=== PATIENT | female | born 1950 | race Caucasian/White ===

== ENCOUNTER 2023-03-30 17:00 | Emergency (ER) | payer MEDICARE, OTHER, SELFPAY ==
[2023-03-30 17:02] VITALS: BP 157/83; PULSE 93; RESP 18; TEMP 37.7; O2SAT 95; BMI 47.0
--- NOTE | 2023-03-30 18:06 | EKG12_ITS ---
Test Reason : Blood Pressure : / mmHG Vent. Rate : 095 BPM Atrial Rate : 095 BPM P-R Int : 180 ms QRS Dur : 144 ms QT Int : 380 ms P-R-T Axes : 022 -39 124 degrees QTc Int : 477 ms Normal sinus rhythm Left axis deviation Left bundle branch block Abnormal ECG Confirmed by HEATHER LEDESMA, HALEIGH ([id number]), social media editor RADHA LEUNG ([id number]) on 04/04/2023 10:38:24 AM Referred By: Confirmed By:KIKO ROMERO MD
[2023-03-30 18:08] VITALS: PULSE 97; RESP 20; O2SAT 90
--- NOTE | 2023-03-30 18:28 | EDS_ITS ---
HPI History of Present Illness Chief Complaint: Cold Sx Informant: patient Onset/Context/Timing Onset: Days (3) Context: Gradual Onset Timing: Continuous Quality: Sore Location: Generalized Worsened by: Nothing Relieved by: Nothing Narrative Narrative: Presents with I do not feel good. Patient states this has been getting worse over the past 3 days. Patient states it is gradually getting worse. Patient states she feels sore all over. Patient states nothing makes it worse and nothing makes it better. Patient states she became concerned today when she took her temperature and it was 101. Patient admits to a mild sore throat. Patient admits to a cough and some shortness of breath. Patient admits to some urinary frequency but denies any dysuria or hematuria. Patient admits to a mild headache. [facility] Medical History (Updated 03/30/23 @ 20:[address] Pelon Condon, ) HTN (hypertension) Home Medications cholecalciferol (vitamin D3) 25 mcg (1,000 unit) capsule 1,000 unit PO DAILY 01/30/14 [History Last Taken 02/15/17] hydrochlorothiazide 12.5 mg capsule 25 mg PO DAILY 01/30/14 [History Last Taken 02/15/17] losartan 50 mg-hydrochlorothiazide 12.5 mg tablet 1 tab PO DAILY 01/30/14 [History Last Taken 02/15/17] metoprolol succinate 50 mg tablet,extended release 24 hr 50 mg PO DAILY 01/30/14 [History Last Taken 02/15/17] multivitamin with folic acid 400 mcg tablet 1 tab PO DAILY 01/30/14 [History Last Taken 02/15/17] colestipol 1 gram tablet 1 tab PO DAILY 02/02/17 [History Last Taken 02/14/17] aspirin 81 mg chewable tablet 81 mg PO DAILY 03/20/18 [History Last Taken Unknown] azithromycin 250 mg tablet 250 mg PO DAILY #4 TABLETS 03/30/23 [Rx Last Taken Unknown] Allergy/AdvReac Type Severity Reaction Status Date / Time naproxen [From Naprosyn] Allergy Unknown Verified 03/30/23 17:02 ramipril [From Altace] Allergy Unknown Verified 03/30/23 17:02 adhesive tape [surgical tape] AdvReac Other Verified 03/30/23 17:02 Family History (Updated 03/20/18 @ 14:18 by Tressa Marsh) Brother Leukemia Cancer Sister Breast cancer Mother Lung cancer Brain aneurysm Father Aortic aneurysm Colon cancer Grandmother Myocardial infarction Surgical History cystocele correction Hx of cholecystectomy right hip surgery S/P hernia repair S/P partial hysterectomy Social History Smoking Status: Never smoker alcohol intake: current details: occasionally substance use type: does not use caffeine: Yes what type of physical activity do you participate in: none seatbelt use: always do you feel safe at home: Yes additional social history: - Gustavo Patient and are both retired ROS ROS ED Constitutional Constitutional ED: Reports fever(s); Denies chills Eyes Eyes: Denies blurry vision or change in vision ENT ENT ED: Reports sore throat; Denies rhinorrhea Cardiovascular Cardiovascular: Reports chest pain; Denies palpitations Respiratory/Chest Respiratory/Chest: Reports cough and dyspnea Gastrointestinal Gastrointestinal: Denies nausea or vomiting Genitourinary Genitourinary ED: Reports urinary frequency; Denies dysuria or hematuria Musculoskeletal Musculoskeletal: Denies back pain or neck pain Integumentary Denies abscess or rash Neurologic Neurologic: Reports headache(s); Denies weakness Allergic/Immunologic Allergic/Immunologic ED: Denies mouth swelling or urticaria EXAM Physical Exam Const Vital Signs: 03/30/23 17:02 03/30/23 18:08 03/30/23 18:06 Temperature 100 F H Temperature Source Temporal Pulse Rate 93 97 Respiratory Rate 18 20 H Respiratory Effort Respiratory Pattern Blood Pressure 157/83 H Blood Pressure Mean 107 Pulse Ox 95 90 Oxygen Delivery Method Room Air Room Air Room Air 03/30/23 18:17 03/30/23 19:41 Temperature Temperature Source Pulse Rate 89 Respiratory Rate 12 Respiratory Effort Normal Non-Labored Respiratory Pattern Normal Blood Pressure 145/78 H Blood Pressure Mean 100 Pulse Ox 93 Oxygen Delivery Method Room Air Positive well nourished, well developed and obese General Appearance ED: well developed and NAD Nutritional Appearance: obese HEENT Reports moist mucous membranes Neck supple and no JVD Resp normal respiratory effort Auscultation: diminished lung sounds diffuse Cardio regular rate and regular rhythm GI non-tender and non-distended Palpation: soft Neuro oriented x3, CN's II-XII intact bilaterally and no sensory deficits noted Sensorium / Orientation: alert Motor Exam: strength 5/5 throughout Psych mental status grossly normal MDM MDM MDM Narrative Medical decision making narrative: Differential diagnosis includes pneumonia, viral upper respiratory infection, electrolyte abnormality, urinary tract infection, COVID-19 infection, and dehydration. CBC will be obtained to assess for leukocytosis and anemia. Basic metabolic profile will be obtained to assess for electrolyte abnormality and renal function. High-sensitivity troponin will be obtained to assess for cardiac ischemia. EKG will be obtained to assess for cardiac dysrhythmia and cardiac ischemia. Chest x-ray will be obtained to assess for pneumonia. Urinalysis will be obtained to assess for urinary tract infection. Lab Data Attestation: I reviewed the patient's lab results. Lab results narrative: CBC was reviewed and was within normal limits. Basic metabolic profile was reviewed and was essentially within normal limits. High-sensitivity troponin was reviewed and was normal at 5. Urinalysis was reviewed. There is no evidence of urinary tract infection or hematuria. COVID-19 rapid antigen was reviewed and was negative. Labs: Laboratory Results - last 24 hr 03/30/23 03/30/23 18:36 18:53 WBC 6.2 RBC 4.60 Hgb 13.6 Hct 41.5 MCV 90.2 MCH 29.6 MCHC 32.8 RDW Std Deviation 50.7 H RDW Coeff of Jose 15.4 H Plt Count 215 MPV 10.3 Immature Gran % (Auto) 0.500 Neut % (Auto) 78.4 H Lymph % (Auto) 8.6 L Callahan % (Auto) 11.5 H Eos % (Auto) 0.5 Baso % (Auto) 0.5 Absolute Neuts (auto) 4.9 Absolute Lymphs (auto) 0.53 L Nucleated RBC % 0 Differential Comment SCANNED Sodium 135 L Potassium 3.5 Chloride 103 Carbon Dioxide 28.0 Anion Gap 4 L BUN 10 Creatinine 0.93 Estim Creat Clear Calc 45.23 Est GFR (MDRD) Af Amer 77 Est GFR (MDRD) Non-Af 63 BUN/Creatinine Ratio 10.8 Glucose 124 H Calcium 9.0 Troponin I High Sens 5 Urine Color Yellow Urine Clarity Clear Urine pH 6.0 Ur Specific Garrison 1.015 Urine Protein 15 H Urine Glucose (UA) Normal Urine Ketones 5 H Urine Occult Blood 10 H Urine Nitrite Negative Urine Bilirubin Negative Urine Urobilinogen Normal Ur Leukocyte Esterase Negative Urine RBC 0 SEEN Urine WBC 0 SEEN Ur Squamous Epith Cells 0 SEEN Urine Bacteria 0 SEEN Urine Mucus 0 SEEN Radiography Chest X-Ray - ED: 1 View, Read by ED Physician, Read by Radiologist and Right Infiltrate Diagnostic Testing: Clinical Impression(s) from Imaging Studies Chest X-Ray 03/30/23 18:40 IMPRESSION: Suspected right lower lobe opacity could represent atelectasis, infection or aspiration. Electronically Signed: Corwin aSm MD at 18:59 EST , Portable 1 view chest x-ray was obtained. On my independent interpretation, lung coburn are a right lower lobe infiltrate. There is normal cardiac silhouette. Bony thorax is normal. Radiologist also interpreted the x-ray and agrees. EKG Initial EKG: Attestation: I personally reviewed and interpreted this EKG as follows: Interpretation: Sinus Rhythm and LBBB Comments: IntervalAchiness obtained. On my independent interpretation, it shows a normal sinus rhythm with a rate of 95. Was normal at 180 ms. QRS interval is prolonged at 144 ms. QTc interval was normal at 477 ms. There is left axis deviation at -39. There is a left bundle branch block pattern noted. There are no acute ST or T wave changes noted. Prior EKG tracings: not available for review Prior: No Prior Treatment and Re-Evaluation :: Patient was advised of her findings. Patient is feeling better on reevaluation. Patient was given her first dose of Zithromax here. Patient was given a prescription for Zithromax. Patient was instructed to follow-up with her primary care physician in 5 to 7 days. Patient understood and was agreeable with the plan. All questions were answered. Discharge Plan Triage Chief Complaint: Cold Sx ED Provider: Pelon Condon Dx/Rx/DC Orders Clinical Impression: Community acquired pneumonia of right lower lobe of lung, HTN (hypertension) Instructions: ED Pneumonia (Adult) Prescriptions: New azithromycin [azithromycin] 250 mg tablet 250 mg PO DAILY Qty: 4 0RF No Action aspirin 81 mg tablet,chewable 81 mg PO DAILY metoprolol succinate 50 MG tablet extended release 24 hr 50 mg PO DAILY Patient Comments: BP hydrochlorothiazide 12.5 MG capsule 25 mg PO DAILY losartan-hydrochlorothiazide 1 EACH tablet 1 tab PO DAILY Patient Comments: BP cholecalciferol (vitamin D3) 1,000 UNIT capsule 1,000 unit PO DAILY multivitamin with folic acid 1 TABLET tablet 1 tab PO DAILY Patient Comments: SUPPLEMENT colestipol 1 GM tablet 1 tab PO DAILY Primary Care Provider: Ky Chavis Referrals: Ky Chavis MD [Primary Care Provider] - 5-7 Days Disposition Disposition: Home, Self Care
--- NOTE | 2023-03-30 18:40 | RAD_ITS ---
INDICATION: SOB EXAMINATION: Frontal view of the chest COMPARISON: None. FINDINGS: Frontal view of the chest was obtained. The cardiac silhouette is mildly enlarged. Suspected opacity in the right lower lobe. No pneumothorax. Granuloma in the right upper lobe. RAD/Chest 1 View (Portable) IMPRESSION: Suspected right lower lobe opacity could represent atelectasis, infection or aspiration. Electronically Signed: Corwin Sam MD at 18:59 EST ,
[2023-03-30 18:42] LABS: Absolute Lymphocyte Count 0.53 X10^3/uL (0.83-4.51); Absolute Neutrophil Count 4.9 X10^3/uL (2.0-7.7); Basophil# 0.03 X10^3/uL; Basophil% 0.5 % (0-1); Eosinophil# 0.03 X10^3/uL; Eosinophils% 0.5 % (0-5); Hematocrit 41.5 % (37-47); Hemoglobin 13.6 g/dL (12.0-15.0); Lymphocyte # 0.53 X10^3/ul (0.83-4.51); Lymphocyte % 8.6 % (19-41); Mean Corp Hgb Conc 32.8 g/dL (32-36); Mean Corpuscular Hgb 29.6 pg (27.0-32.0); Mean Corpuscular Volume 90.2 fL (81-99); Mean Platelet Vol. 10.3 fl (6.2-12.0); Monocyte# 0.71 X10^3/uL; Monocyte% 11.5 % (0-10); NRBC Flagged by Analyzer 0 % (0-5); Neutrophil # 4.86 X10^3/uL (2.7-7.7); Neutrophil % 78.4 % (47-70); POSITIVE DIFFERENTIAL YES; Platelet Count 215 K/mm3 (150-450); RBC Distribution Width CV 15.4 % (11.6-14.6); RBC Distribution Width SD 50.7 fl (35.1-43.9); White Blood Count 6.2 K/mm3 (4.4-11.0)
[2023-03-30 18:45] VITALS: O2SAT 92
[2023-03-30 18:47] LABS: Differential Indicated SCAN CRITERIA MET
[2023-03-30 18:56] LABS: Bacteria 0 SEEN /hpf (None Seen); Mucous, Urine 0 SEEN /hpf (<or=2+); Red Blood Cells-Urine 0 SEEN /hpf (0-5); Squamous Epithelial Cells - UA 0 SEEN /hpf (5-10); White Blood Cells 0 SEEN /hpf (0-5)
[2023-03-30 18:59] LABS: Anion Gap 4 (5-15); BUN 10 mg/dL (7-18); BUN/Creat Ratio 10.8 RATIO (10-20); Chloride 103 mmol/L (98-107); Creatinine, Serum 0.93 mg/dL (0.55-1.02); EST Glomerular Filtration Rate 63 mL/min (>60); Est Glom Filt Rate - Afr Amer 77 mL/min (>60); Estimated Creatinine Clearance 45.23 ml/min; Glucose 124 mg/dL (74-106); Potassium 3.5 mmol/L (3.5-5.1); Sodium Level 135 mmol/L (136-145); Troponin-I HS 5 pg/mL (3.0-54.0)
[2023-03-30 19:00] LABS: Color, Urine Yellow (Yellow); Glucose, Dipstick Normal (Normal); Ketone-Dipstick 5 mg/dl (Negative); Leukocyte Esterase-Dipstick Negative /ul (Negative); Nitrite-Dipstick Negative (Negative); Occult Blood-Urine 10 /ul (Negative); Protein-Dipstick 15 mg/dl (Negative); Specific Gravity, Urine 1.015 (1.002-1.030); Urine Bilirubin Dipstick Negative (Negative); Urine Clarity Clear (Clear); Urine Urobilinogen Normal (Normal)
[2023-03-30 19:10] LABS: Differential Comment SCANNED
[2023-03-30 19:41] VITALS: BP 145/78; PULSE 89; RESP 12; O2SAT 93
[2023-03-30] MEDS: Azithromycin 250 MG Tablet 500 MG PO (21:10)
[2023-03-30] MEDS: Albuterol Sulfate 8 gm Inhaler (60 puffs) 4 PUFF INHALATION (21:10)
[2023-03-30 21:12] VITALS: BP 148/92; PULSE 100; RESP 15; O2SAT 94
== END 2023-03-30 21:30 | disposition home or self-care (01) ==
PROVIDERS: Emergency Provider Emergency Medicine; PCP Family Medicine; Visit Provider Emergency Medicine
DX: J18.9 Pneumonia, unspecified organism (principal); I10 Essential (primary) hypertension; Z79.899 Other long term (current) drug therapy; Z79.82 Long term (current) use of aspirin; Z90.49 Acquired absence of other specified parts of digestive tract; Z90.710 Acquired absence of both cervix and uterus
CPT/HCPCS: 71045; 80048; 81001; 84484; 85025; 87811; 93005; 94760; 99283; A4216